=== PATIENT | male | born 1965 | race African-American/Black ===

== ENCOUNTER 2024-08-09 08:50 | Emergency (ER) | payer OTHER | END 2024-08-09 10:15 | disposition home or self-care (01) | LOC: MADERS 08:50 | DX: G89.29 Other chronic pain (principal); M79.674 Pain in right toe(s); K21.9 Gastro-esophageal reflux disease without esophagitis; F17.220 Nicotine dependence, chewing tobacco, uncomplicated; M54.50 Low back pain, unspecified | CPT/HCPCS: 36416; 99283 ==